=== PATIENT | female | born 1960 | race Caucasian/White ===

== ENCOUNTER 2024-10-29 09:27 | Day surgery (SDC) | payer MEDICARE ==
[~2024-10-29] VITALS: Ht 154.9 cm; Wt 78.9 kg
[~2024-10-29 09:27] MED LIST: ATEN50TA2 PO; CALC600C3 PO; GLIP10TA PO; HYDR-3490 PO; METF10004 PO; MIDAZOLAM INJ 2 MG/2 ML VIAL As Ordered ONE; PHENYLEPHRINE 10% OPHTH SOL 5ML OD PRN; PIOG1TAB55 PO; ROSU10TA61 PO; TRAZ-257 PO; VENL150C43 PO; VERA360C PO
[2024-10-29] MEDS: LIDOCAINE 3.5% 1 ML OPHTH TOPICAL GEL OU ONE (11:00)
[2024-10-29] MEDS: OFLOXACIN 0.3 % (OCUFLOX) OPTH SOL 5ML OD ONE (11:07)
[2024-10-29] MEDS: TROPICAMIDE 1% OPHTH SOLN 15ML OD SCH (11:08)
[2024-10-29] MEDS: PHENYLEPHRINE 2.5% OPHTH SOL 2ML OD SCH (11:08)
[2024-10-29] MEDS: CYCLOPENTOLATE 1% OPHTH SOLN 2 ML BTL OD SCH (11:08)
[2024-10-29] MEDS: CEFUROXIME 1 MG/0.1 ML INTRACAMERAL INJ As Ordered ONE (11:50)
[2024-10-29] MEDS: BSS IRRIG/VANCO(10MG)/TOBRA(5MG)/EPINEPH(1:1000-0.5CC)500ML BAG-ORONLY As Ordered ONE (11:50)
[2024-10-29] MEDS: LIDOCAINE 1% SDV 5 ML VIAL As Ordered ONE (11:50)
[2024-10-29 12:03] VITALS: BP 132/65; TEMP 97; O2SAT 95
== END 2024-10-29 12:18 | disposition home or self-care (01) ==
LOC: M SDC 09:27
PROVIDERS: ATTEND Ophthalmology
DX: E11.36 Type 2 diabetes mellitus with diabetic cataract (principal); H25.11 Age-related nuclear cataract, right eye; I10 Essential (primary) hypertension; E78.00 Pure hypercholesterolemia, unspecified; F41.9 Anxiety disorder, unspecified; F32.A Depression, unspecified; Z79.899 Other long term (current) drug therapy; Z79.84 Long term (current) use of oral hypoglycemic drugs; Z88.8 Allergy status to other drugs, medicaments and biological substances
CPT/HCPCS: 66984; J0697; J2250; J3010; V2632